=== PATIENT | male | born 1960 | race Caucasian/White ===

== ENCOUNTER 2017-01-17 11:07 | Observation (INO) | payer BC ==
[~2017-01-17] VITALS: Ht 172.7 cm; Wt 98.0 kg
[~2017-01-17 11:07] MED LIST: ASPI-535 PO; ATOR80TA18 PO; CLOP75TA19 PO; DOCU-144 PO; HYDR-906 PO; ONDA4TAB8 PO
[2017-01-17] MEDS ORDERED: ASPIRIN 325 MG TAB PO ONE (12:00)
[2017-01-17] MEDS ORDERED: NITROGLYCERIN 2% 1 GM OINT PKT TD ONE (12:00)
[2017-01-17 12:20] LABS: ADD SCAN DIFF NO
[2017-01-17 12:22] LABS: BASOPHIL # 0.1 10^3/ul (0.0-0.1); BASOPHILS % 0.8 % (0.0-2.0); EOSINOPHILS # 0.4 10^3/ul (0.0-0.5); EOSINOPHILS % 5.9 % (0.0-7.0); HEMATOCRIT 41.2 % (42.0-52.0); HEMOGLOBIN 14.4 g/dl (14.0-18.0); LYMPHOCYTES # 1.9 10^3/ul (0.8-2.9); LYMPHOCYTES % 25.2 % (15.0-51.0); MEAN CORPUSCULAR HEMOGLOBIN 29.6 pg (29.0-33.0); MEAN CORPUSCULAR VOLUME 84.8 fl (82.0-101.0); MEAN PLATELET VOLUME 9.3 fl (7.4-10.4); MONOCYTE # 0.7 10^3/ul (0.3-0.9); MONOCYTES % 8.9 % (0.0-11.0); NEUTROPHIL # 4.4 10^3/ul (1.6-7.5); NEUTROPHILS % 58.9 % (39.0-77.0); PLATELET COUNT 313 10^3/UL (140-415); RED BLOOD COUNT 4.86 10^6/ul (4.70-6.10); WHITE BLOOD COUNT 7.4 10^3/ul (4.8-10.8)
--- NOTE | 2017-01-17 12:30 | RADRPT ---
PROCEDURE: Chest x-ray CLINICAL INDICATION: Chest pain TECHNIQUE: Chest single view COMPARISON: 06/29/2016 FINDINGS: The heart is normal in size. The pulmonary vessels are normal in caliber. The lungs are clear. Th e costophrenic angles are sharp. The visualized bony thorax is unremarkable. IMPRESSION: No acute cardiopulmonary disease. RPTAT: HH .Max Murray MD, Date Time Electronically viewed and signed by .Max Murray MD, on 01/17/2017 12:29 .W/
[2017-01-17 12:36] LABS: ALBUMIN 4.1 g/dl (3.3-4.9); CHLORIDE 102 mmol/L (97-110); POTASSIUM 3.9 mmol/L (3.5-5.1); SODIUM 139 mmol/L (135-144)
[2017-01-17 12:38] LABS: ANION GAP 13 (8-16); ASPARTATE AMINO TRANSFERASE 26 IU/L (15-46); BILIRUBIN,INDIRECT 0.5 mg/dl (0-1.1); BILIRUBIN,TOTAL 0.5 mg/dl (0.2-1.3); CARBON DIOXIDE 28 mmol/L (21-31)
[2017-01-17 12:39] LABS: ALANINE AMINOTRANSFERASE 49 IU/L (13-69); ALBUMIN/GLOBULIN RATIO 1.46; ALKALINE PHOSPHATASE 80 IU/L (42-121); BLOOD UREA NITROGEN 15 mg/dl (7-20); CALCIUM 9.7 mg/dl (8.4-10.2); GLUCOSE 88 mg/dl (70-220); TOTAL PROTEIN 6.9 g/dl (6.1-8.1)
[2017-01-17 12:43] LABS: PROTIME 13.2 Sec (12.2-14.2)
[2017-01-17 12:44] LABS: PARTIAL THROMBOPLASTIN TIME 33.7 Sec (25.0-35.0)
[2017-01-17 12:52] LABS: TROPONIN-I < 0.012 ng/ml (0.00-0.12)
--- NOTE | 2017-01-17 13:44 | ERA ---
ER Documentation Chief Complaint Date/Time DATE: 01/17/17 TIME: 13:42 Chief Complaint chest pain for the past 2 days. no n/v. mild sob. no diaphoresis HPI 56-year-old male presents to the emergency department complaining of chest pain. Patient states for the last 2 days he has had a spontaneous, non-provoked chest discomfort in the center part of his chest. It is pressure-like and nonspecific and radiates to his right upper extremity. It is associated with no nausea or vomiting. He reports shortness of breath with no diaphoresis. He reports no fevers or chills. Patient has had no significant follow-up since stenting of 1 of his coronary arteries. ROS All systems reviewed and are negative except as per history of present illness. Medications Home Meds Reported Medications Clopidogrel Bisulfate (Plavix) 75 Mg Tablet, 75 MG PO DAILY 11/03/12 Aspirin Ec (Aspir 81) 81 Mg Tablet.dr, 81 MG PO DAILY 10/28/12 Atorvastatin (Lipitor) 80 Mg Tablet, 80 MG PO DAILY 10/28/12 Discontinued Scripts Ondansetron Hcl* (Zofran*) 4 Mg Tablet, 4 MG PO Q8H Y for NAUSEA AND/OR VOMITING , #15 TAB Prov:LEELA RATLIFF DO 06/29/16 Docusate Sodium* (Colace*) 100 Mg Capsule, 100 MG PO TID, #30 CAP Prov:LEELA RATLIFF DO 06/29/16 Hydrocodone/Acetaminophen ([place] 5-325 Tablet) 1 Each Tablet, 1 TAB PO Q6H Y for PAIN, #20 TAB Prov:LEELA RATLIFF DO 06/29/16 Allergies Allergies: Coded Allergies: No Known Drug Allergy (Verified Allergy, Mild, 01/17/17) PMhx/Soc History of Surgery: Yes (STENT X3) Anesthesia Reaction: No Hx Neurological Disorder: No Hx Respiratory Disorders: No Hx Cardiac Disorders: Yes (HTN) Hx Psychiatric Problems: No Hx Miscellaneous Medical Probl: No Hx Alcohol Use: No Hx Substance Use: No Hx Tobacco Use: No Smoking Status: Never smoker FmHx Noncontributory for chief complaint Physical Exam Vitals Vital Signs Date Time Temp Pulse Resp B/P Pulse Ox O2 Delivery O2 Flow Rate FiO2 01/17/17 12:02 Nasal Cannula 01/17/17 11:14 98.8 90 21 150/81 98 Physical Exam GENERAL: The patient is well developed and appropriate for usual state of health in no apparent distress HEENT: Pupils equal, round, and reactive to light. EOMI. There is no scleral icterus. NECK: C-spine is soft and supple, there is no meningismus. There is no cervical lymphadenopathy. LUNGS: Clear to auscultation bilaterally. There are no rales, wheezes or rhonchi. HEART: Regular rate and rhythm, no murmurs, clicks, rubs or gallops. ABDOMEN: Soft, non-tender, non-distended. There are bowel sounds in all four quadrants. No rebound or guarding. EXTREMITIES: There is no peripheral cyanosis or edema. No focal swelling or erythema. NEURO: The patient moves all four extremities with 5/5 strength. Cranial nerves II - XII are intact. Normal gait. Alert and oriented SKIN: There is no apparent rash or petechiae. HEME/LYMPHATIC: There is no evidence of excessive bruising or lymphedema. PSYCHIATRIC: The patient does not appear anxious or depressed. Result Diagram: 01/17/17 1205 01/17/17 1205 Results 24 hrs Laboratory Tests Test 01/17/17 12:05 White Blood Count 7.410^3/ul Red Blood Count 4.8610^6/ul Hemoglobin 14.4g/dl Hematocrit 41.2% Mean Corpuscular Volume 84.8fl Mean Corpuscular Hemoglobin 29.6pg Mean Corpuscular Hemoglobin Concent 35.0g/dl Red Cell Distribution Width 12.0% Platelet Count 92940^3/UL Mean Platelet Volume 9.3fl Neutrophils % 58.9% Lymphocytes % 25.2% Monocytes % 8.9% Eosinophils % 5.9% Basophils % 0.8% Nucleated Red Blood Cells % 0.0/100WBC Neutrophils # 4.410^3/ul Lymphocytes # 1.910^3/ul Monocytes # 0.710^3/ul Eosinophils # 0.410^3/ul Basophils # 0.110^3/ul Nucleated Red Blood Cells # 0.010^3/ul Prothrombin Time 13.2Sec Prothrombin Time Ratio 1.0 INR International Normalized Ratio 1.00 Activated Partial Thromboplast Time 33.7Sec Sodium Level 139mmol/L Potassium Level 3.9mmol/L Chloride Level 102mmol/L Carbon Dioxide Level 28mmol/L Anion Gap 13 Blood Urea Nitrogen 15mg/dl Creatinine 0.90mg/dl Glucose Level 88mg/dl Calcium Level 9.7mg/dl Total Bilirubin 0.5mg/dl Direct Bilirubin 0.00mg/dl Indirect Bilirubin 0.5mg/dl Aspartate Amino Transf (AST/SGOT) 26IU/L Alanine Aminotransferase (ALT/SGPT) 49IU/L Alkaline Phosphatase 80IU/L Troponin I < 0.012ng/ml Total Protein 6.9g/dl Albumin 4.1g/dl Globulin 2.80g/dl Albumin/Globulin Ratio 1.46 Current Medications Medications (Trade) Dose Ordered Sig/Cinthia Route PRN Reason Start Time Stop Time Status Last Admin Dose Admin Aspirin (Aspirin) 325 mg ONCE ONCE PO 01/17/17 12:00 01/17/17 12:01 DC 01/17/17 11:55 Nitroglycerin (Nitroglycerin 2% Oint) 1 inch ONCE ONCE TD 01/17/17 12:00 01/17/17 12:01 DC 01/17/17 11:55 Procedures/MDM Patient was taken to a room, seen and evaluated. Comfort measures were initiated. Diagnostic tests were ordered and reviewed. 3 LEAD RHYTHM STRIP: Normal sinus rhythm without ectopy EK lead EKG reviewed by myself: Normal Sinus Rhythm Normal [place] and intervals Nonspecific ST and T-wave changes mostly appreciated about the inferior leads Impression: Abnormal EKG with possible ischemic changes inferiorly Repeat twelve-lead EKG interpreted by myself: Rate/rhythm: Normal sinus rhythm no ectopy [place]/intervals: Normal Ischemia: No ST elevation, ST depression, T wave inversion Impression: Nonischemic EKG RADIOLOGY: reviewed with the radiologist CONSULTATION: hospitalist was notified for admission REEVALUATION: Patient remained comfortable in the emergency department and hemodynamically stable MEDICAL DECISION MAKING: Patient presents with chest pain of uncertain etiology. Differential diagnosis considered includes acute myocardial infarction , pulmonary embolism, as well as vascular and pulmonary concerns. I have reviewed the patients clinical risk factors, EKG, lab studies and imaging. At this time, patient's initial EKG is nonspecific but normalized. Patient's troponin is negative. Given his underlying history of heart disease, he is obviously at risk and will require admission for further risk stratification Departure Diagnosis: Primary Impression: Chest pain Condition: MALCOLM Boyd Jan 17, 2017 13:44
[2017-01-17 14:05] VITALS: TEMP 98.6
[2017-01-17] MEDS ORDERED: ACETAMINOPHEN 500 MG TAB PO STA (14:07)
[2017-01-17] MEDS ORDERED: MAGNESIUM HYDROXIDE 30ML CUP PO PRN (15:30)
[2017-01-17] MEDS ORDERED: morphine 2 MG INJ IV PRN (15:30)
[2017-01-17] MEDS ORDERED: NACL 0.9% 3 ML SYG IV SCH (15:30)
[2017-01-17] MEDS ORDERED: ONDANSETRON 4 MG INJ IV PRN (15:30)
[2017-01-17] MEDS ORDERED: NA PHOSPHATE/BIPHOS 133 ML ENEMA PR PRN (15:30)
[2017-01-17] MEDS ORDERED: ACETAMINOPHEN 325 MG TAB PO PRN (15:30)
[2017-01-17] MEDS ORDERED: hydrALAzine 20 MG INJ IV PRN (15:30)
[2017-01-17] MEDS ORDERED: ALBUTEROL/IPRATROPIUM (NEB) 3 ML AMP HHN PRN (15:30)
[2017-01-17] MEDS ORDERED: NITROGLYCERIN (SL) 0.4 MG TAB SL PRN (15:30)
[2017-01-17] MEDS ORDERED: LORAZEPAM 2 MG INJ IV PRN (15:30)
[2017-01-17] MEDS ORDERED: DOCUSATE SODIUM 100 MG CAP PO PRN (15:30)
[2017-01-17 15:32] VITALS: PULSE 88
[2017-01-17 15:38] VITALS: Ht 172.7 cm; Wt 98.0 kg
[2017-01-17 16:20] VITALS: PULSE 83
[2017-01-17 17:25] LABS: CK-MB 0.68 ng/ml (0.0-2.4)
[2017-01-17] MEDS: HYDROCODONE/APAP (5/325) TAB PO PRN (18:25)
[2017-01-17 19:09] LABS: CREATINE KINASE 77 IU/L (23-200)
[2017-01-17 19:32] LABS: CK-MB 0.54 ng/ml (0.0-2.4); TROPONIN-I < 0.012 ng/ml (0.00-0.12)
[2017-01-17 20:03] VITALS: PULSE 75
[2017-01-17 20:07] VITALS: BP 113/69; RESP 19
[2017-01-17] MEDS: FAMOTIDINE 20 MG TAB PO SCH (21:37)
[2017-01-17] MEDS: HEPARIN 5,000 UNIT/0.5 ML VIAL SC SCH (21:41)
[2017-01-17 23:40] VITALS: BP 105/57; RESP 18
[2017-01-17 23:57] LABS: CREATINE KINASE 67 IU/L (23-200)
[2017-01-18] VITALS (8 sets, daily range): BP systolic 111–121; BP diastolic 70–78; PULSE 60–103; RESP 19–20
[2017-01-18 00:11] LABS: CK-MB 0.39 ng/ml (0.0-2.4); TROPONIN-I < 0.012 ng/ml (0.00-0.12)
--- NOTE | 2017-01-18 07:34 | HP ---
DATE OF ADMISSION: 01/17/2017 CHIEF COMPLAINT: Chest pain and tightness. HISTORY OF PRESENT ILLNESS: A 56-year-old male with past medical history of coronary artery disease status post PCI placement x3, hypertension, high cholesterol who presents earlier today with compla ints of chest pain that has been going on for the last 2 days. He said it has been radiating to the right arm. It has been described more as a chest tightness. He also noticed over the last few wee ks his blood pressure has been higher than normal. Normally his systolic blood pressure is apparent ly in the 120s to 130s, but in the last few weeks he has noticed it has been in the 140s to 150s. R egarding his chest discomfort, he does describe it as pressure-like in sensation, again radiating to the right upper extremity. No nausea, vomiting, no upper or lower GI bleeding, no shortness of fermín ath, no headaches or dizziness. No sweating. No fevers or chills. No diarrhea, no constipation. He states he has not seen managed care director presently. His last follow up with any managed care director has been at least over 1 year ago. PAST MEDICAL HISTORY: As stated above. ALLERGIES: NO KNOWN DRUG ALLERGIES. MEDICATIONS AT HOME: 1. Plavix 75 mg daily. 2. Lipitor 80 mg daily. 3. Aspirin 81 mg daily. PAST SURGICAL HISTORY: He had cholecystectomy 2 months ago. SOCIAL HISTORY: Negative for smoking, drinking, or IV drug abuse. FAMILY HISTORY: His brother had coronary artery disease; another sibling had a stroke and also cere bral hemorrhage. PHYSICAL EXAMINATION: VITAL SIGNS: T-max 98.8, pulse 90, respirations 21, blood pressure 150/81, saturating at 98% on stepan m air. GENERAL: The patient is lying in bed, answering questions appropriately. No acute distress. HEENT: Pupils are equal, round, react to light. Extraocular muscles intact. NECK: Supple, no thyromegaly. LUNGS: Clear to auscultation bilaterally. CARDIOVASCULAR: S1, S2 heard. No rubs or gallops. ABDOMEN: Soft, nontender, nondistended. Normal bowel sounds. No rebound or guarding. MUSCULOSKELETAL: No lower extremity edema bilaterally. NEUROLOGIC: No focal deficits. LABORATORIES: CBC is normal. The comprehensive metabolic panel is normal. Troponin is negative x1 . Coags are normal. IMAGING: Chest x-ray shows no acute cardiopulmonary disease. EKG showed normal sinus rhythm. Ther e are questionable T-wave changes in the inferior leads and possible ST depression in these areas as well. ASSESSMENT AND PLAN: This is a 56-year-old male with past medical history of hypertension, high cho lesterol, coronary artery disease status post stent x3 in the past who presents with chest pain for the last 2 days. 1. Chest pain: Given his cardiac history, we will admit him to telemetry floor, rule him out for a cute coronary syndrome. Will check troponins every 6 hours x2 more. Will put him on high dose asp irin, morphine, oxygen, and nitroglycerin. We will check a 2D echocardiogram Check a TSH, A1c and l ipid panel. Continue Lipitor. We will get a cardiology consult. The patient may benefit from a ca rdiac stress test as well. Will discuss with cardiology team. 2. High cholesterol: We will check a lipid panel and continue Lipitor. 3. Hypertension: Blood pressure is presently stable. Continue current medications and hydralazine p.r.n. for systolic greater than 160. 4. GI prophylaxis: Will put him on H2 dulce. 5. Deep venous thrombosis prophylaxis: Heparin subQ. Dictated By: SMITA PONCE/LIZZETH Conf#: [id number] DID#: [id number]
[2017-01-18] MEDS: FAMOTIDINE 20 MG TAB PO SCH (08:07)
[2017-01-18] MEDS: HEPARIN 5,000 UNIT/0.5 ML VIAL SC SCH (08:22)
[2017-01-18 08:30] LABS: CHOL/HDL RATIO 3.8 RATIO
--- NOTE | 2017-01-18 08:43 | CONS ---
Date/Time of Note Date/Time of Note DATE: 01/18/17 TIME: 08:40 Assessment/Plan Assessment/Plan Chief Complaint/Hosp Course Chest pain- atypical, has h/o of cad. has r/o for acs. needs stress test to risk stratify. echo reviewed, no wma. - plan for exercise stress echo - d/c nitro paste. - cont aspirin - cont statin - on plavix - ok to cont for now s/p deirdre- stable per primary team h/o htn- not on meds as outpt, bp higher at presentation, stable currently - cont to follow, consider bb therapy Problems: Consultation Date/Type/Reason Admit Date/Time Jan 17, 2017 at 13:41 Date of Consultation: Jan 18, 2017 Type of Consultation: Cardiology Reason for Consultation Chest pain Referring Provider: SMITA BURNETT Hx of Present Illness Mr. Mccray is a 56 y.o. man with h/o of CAD s/p PCI to RCA and [place]x [place] [address] Arzate. Pt has not followed in our clinic since 2012. Patient reports 3-4 days of constant chest pain/pressure with radiation to neck and R arm. Pt denies sob, n/v, diaphoresis associated. Has felt fatigue with activity. Pain occurs at rest, no change with activity. He denies any similar pain in past, he has had recent cholecystectomy 3 mo ago. Reports having more huber in 2013 prior to PCI. Pt denies pnd, orthopnea, edema. no palpitations, dizziness, syncope. EKG which I reviewed, shows nsr, no ischemic st/t wave abnl. trop neg x 3. pt states he still has the chest pressure, mild in intensity looks comfortable. states pain is made worse with coffee. Constitutional: no complaints Eyes: no complaints ENT: no complaints Respiratory: no complaints Cardiovascular: chest pain Gastrointestinal: other (s/p deirdre), pain Genitourinary: no complaints Musculoskeletal: no complaints Skin: no complaints Neurologic: no complaints Psychological: no complaints Immunologic: no complaints Past Medical History Chest Pain 786.50 Coronary Artery Disease 414.00 cath oct:Medtronic rEsolute 2.5X26 stent dominant RCA,Promus 2.5X20 stent Circ I OMB trunk,2.5X16 Promus stent in a large branch of I OMB.40% lesion in small MID LAD Dizziness 780.4 Hyperlipidemia 272.4 Hypertension 401.9 Non-Q-wave Myocardial Infarction 410.70 Adm with a very small NSTEMI probably due to a small branch of I OMB occlusion on october and disch on oct Palpitations 785.1 Shortness Of Breath 786.05 Unstable Angina 411.1 History of Diabetes Mellitus 250.00 Family History Significant Family History: other ( Fraternal history of Acute Myocardial Infarction V17.3) Social History Alcohol Use: none Smoking Status: Never smoker Drug Use: none Exam/Review of Systems Vital Signs Vitals Vital Signs Date Time Temp Pulse Resp B/P Pulse Ox O2 Delivery O2 Flow Rate FiO2 01/18/17 08:24 71 01/18/17 07:43 98.5 19 111/70 95 01/17/17 14:05 Room Air Intake and Output 01/17/17 01/17/17 01/18/17 15:00 23:00 07:00 Intake Total 100 ml 720 ml Balance 100 ml 720 ml Exam Constitutional: alert, obese, oriented Psych: no complaints Head: atraumatic, normocephalic Eyes: nl conjunctiva ENMT: nl external ears & nose, nl lips & teeth, nl nasal mucosa & septum Neck: non-tender, supple, No jvd Respiratory: clear to auscultation, normal air movement Cardiovascular: nl pulses, regular rate and rhythm, No S3, No S4, No diastolic murmur, No edema, No systolic murmur Gastrointestinal: non-tender, soft Musculoskeletal: nl extremities to inspection, nl gait and stance Extremities: normal pulses Neurological: 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 EXAMINER II-XII intact, nl mental status, nl speech, nl strength Skin: nl turgor Results Result Diagram: 01/17/17 1205 01/17/17 1205 Results 24 hrs Laboratory Tests Test 01/17/17 12:05 01/17/17 18:15 01/17/17 23:40 White Blood Count 7.4 Red Blood Count 4.86 Hemoglobin 14.4 Hematocrit 41.2 L Mean Corpuscular Volume 84.8 Mean Corpuscular Hemoglobin 29.6 Mean Corpuscular Hemoglobin Concent 35.0 Red Cell Distribution Width 12.0 Platelet Count 313 Mean Platelet Volume 9.3 # Neutrophils % 58.9 Lymphocytes % 25.2 Monocytes % 8.9 Eosinophils % 5.9 Basophils % 0.8 Nucleated Red Blood Cells % 0.0 Neutrophils # 4.4 Lymphocytes # 1.9 Monocytes # 0.7 Eosinophils # 0.4 Basophils # 0.1 Nucleated Red Blood Cells # 0.0 Prothrombin Time 13.2 Prothrombin Time Ratio 1.0 INR International Normalized Ratio 1.00 Activated Partial Thromboplast Time 33.7 Sodium Level 139 Potassium Level 3.9 Chloride Level 102 Carbon Dioxide Level 28 Anion Gap 13 Blood Urea Nitrogen 15 Creatinine 0.90 Glucose Level 88 Calcium Level 9.7 Total Bilirubin 0.5 Direct Bilirubin 0.00 Indirect Bilirubin 0.5 Aspartate Amino Transf (AST/SGOT) 26 Alanine Aminotransferase (ALT/SGPT) 49 Alkaline Phosphatase 80 Creatine Kinase 95 77 67 Creatinine Kinase MB (Mass) 0.68 0.54 0.39 Troponin I < 0.012 < 0.012 < 0.012 Total Protein 6.9 Albumin 4.1 Globulin 2.80 Albumin/Globulin Ratio 1.46 Free Thyroxine 1.11 Creatine Kinase Index 0.7 0.6 Medications Medications Current Medications Ondansetron HCl (Zofran Inj) 4 mg Q6H PRN IV NAUSEA AND/OR VOMITING; Start at 15:30 Acetaminophen (Tylenol Tab) 650 mg Q6H PRN PO PAIN LEVEL 1-3 OR FEVER; Start at 15:30 Acetaminophen/ Hydrocodone Bitart ([place] (5/325)) 1 tab Q6H PRN PO MODERATE PAIN LEVEL 4-6 Last administered on 01/17/17 18:25; Admin Dose 1 TAB; Start at 15:30 Morphine Sulfate (morphine) 2 mg Q4H PRN IV SEVERE PAIN LEVEL 7-10; Start 01/17 at 15:30 Docusate Sodium (Colace) 100 mg Q12H PRN PO CONSTIPATION; Start 01/17/17 at 15: 30 Magnesium Hydroxide (Milk Of Mag) 30 ml DAILY PRN PO CONSTIPATION; Start at 15:30 Sodium Biphosphate/ Sodium Phosphate (Fleet Enema) 133 ml DAILY PRN CO CONSTIPATION; Start 01/17/17 at 15:30 Famotidine (Pepcid) 20 mg Q12 PO Last administered on 01/18/17 08:07; Admin Dose 20 MG; Start 01/17/17 at 21:00 Heparin Sodium (Porcine) (Heparin (5000 Units/0.5 ml)) 5,000 unit Q12 SC Last administered on 01/18/17 08:22; Admin Dose 5,000 UNIT; Start 01/17/17 at 21:00 Lorazepam (Ativan) 0.5 mg Q6H PRN IV ANXIETY; Start 01/17/17 at 15:30 Hydralazine HCl (Apresoline) 10 mg Q6H PRN IV ELEVATED BLOOD PRESSURE; Start at 15:30 Nitroglycerin (Nitroglycerin (Sl Tab) 0.4 Mg) 1 tab Q5M PRN SL ANGINA; Start at 15:30 Aspirin (Ecotrin) 325 mg DAILY PO Last administered on 01/18/17 08:07; Admin Dose 325 MG; Start 01/18/17 at 09:00 Atorvastatin Calcium (Lipitor) 80 mg DAILY PO Last administered on 01/18/17 08 :07; Admin Dose 80 MG; Start 01/18/17 at 09:00 Clopidogrel Bisulfate (plaVIX) 75 mg DAILY PO Last administered on 01/18/17 08 :07; Admin Dose 75 MG; Start 01/18/17 at 09:00 Procedures Procedures cxr images reviewed, no acute abnl tele reviewed no events, nsr KOREY THORNE Jan 18, 2017 08:43
[2017-01-18 08:56] LABS: ADD SCAN DIFF NO
[2017-01-18 08:59] LABS: THYROID STIMULATING HORMONE 2.01 MIU/L (0.465-4.680)
[2017-01-18 09:00] LABS: BASOPHIL # 0.1 10^3/ul (0.0-0.1); BASOPHILS % 0.8 % (0.0-2.0); EOSINOPHILS # 0.6 10^3/ul (0.0-0.5); EOSINOPHILS % 6.9 % (0.0-7.0); HEMOGLOBIN 13.8 g/dl (14.0-18.0); LYMPHOCYTES # 1.8 10^3/ul (0.8-2.9); LYMPHOCYTES % 21.2 % (15.0-51.0); MEAN CORPUSCULAR HGB CONC 33.7 g/dl (32.0-37.0); MEAN CORPUSCULAR VOLUME 86.1 fl (82.0-101.0); MONOCYTE # 0.7 10^3/ul (0.3-0.9); MONOCYTES % 8.6 % (0.0-11.0); NEUTROPHIL # 5.3 10^3/ul (1.6-7.5); NEUTROPHILS % 62.1 % (39.0-77.0); PLATELET COUNT 299 10^3/UL (140-415); RED BLOOD COUNT 4.76 10^6/ul (4.70-6.10); RED CELL DISTRIBUTION WIDTH 12.2 % (11.5-14.5); WHITE BLOOD COUNT 8.6 10^3/ul (4.8-10.8)
[2017-01-18] MEDS ORDERED: CLOPIDOGREL 75 MG TAB PO SCH (09:00)
[2017-01-18] MEDS ORDERED: ATORVASTATIN 80 MG TAB PO SCH (09:00)
[2017-01-18] MEDS ORDERED: ASPIRIN (EC) 325 MG TAB PO SCH (09:00)
[2017-01-18 09:03] LABS: POTASSIUM 4.2 mmol/L (3.5-5.1)
[2017-01-18 09:05] LABS: CREATININE 0.98 mg/dl (0.61-1.24)
[2017-01-18 09:06] LABS: CALCIUM 9.5 mg/dl (8.4-10.2); MAGNESIUM 2.1 mg/dl (1.7-2.5); PHOSPHORUS 3.7 mg/dl (2.5-4.9)
[2017-01-18] MEDS: HYDROCODONE/APAP (5/325) TAB PO PRN (10:06)
--- NOTE | 2017-01-18 14:22 | RADRPT ---
Stress Test Report Patient Name: RICKY TAYLOR Gender: Male Date: 1960 Study Date: 18-Jan-2017 Search Marketing Analyst: Kiah Salas [facility] Location: EKG Ref. Physician: TUAN THORNE Quality: Good Procedures: Treadmill stress echocardiogram. Indications: Chest Pain. Findings Stress Data: Protocol - Ruddy Protocol. Resting Echo Findings: Normal left ventricular size and systolic function with normal wall thickness at rest. Resting ECG: Normal EKG. Exercise Stress LV Function: Normal hyperdynamic contractile response with no inducible ischemia in areas visualized. The stress parasternal short axis view was not obtained. Exercise ECG: No stress induced ischemic ST segment changes. Reason for Termination: Fatigue. Chest Pain. Functional Capacity: Average exercise functional capacity. Blood Pressure Response: Normal blood pressure response. Arrhythmia: No exercise induced arrhythmias. Conclusions Normal hemodynamic response to exercise. Stress echocardiogram negative for inducible ischemia at greater than 100 % MPHR. Exercise induced chest pain at peak stress, resolved in recovery. Average functional capacity. Electronically Signed By: Tuan Thorne 18-Jan-2017 14:21:42 -0700 Patient Name: RICKY TAYLOR Study Date: 18-Jan-2017 [id number]
--- NOTE | 2017-01-18 14:24 | RADRPT ---
Echocardiogram Report Patient Name: RICKY TAYLOR Gender: Male Date: 1960 Study Date: 18-Jan-2017 Waiver Analyst: Radha Lyon [facility] Location: 522 Ref. Physician: SMITA BURNETT Quality: Good Procedures: Transthoracic echocardiogram with complete 2D, M-Mode, and doppler examination. Indications: Chest Pain. Coronary Artery Disease. 2D/M Mode Doppler Measurement Value Normal Ranges Measurement Value Normal Ranges LVIDd 2D 4.5 3.5 - 5.6 cm AV Peak Berry 1.1 m/sec LVIDs 2D 3.3 2.1 - 4.1 cm AV Peak PG 4.7 mmHg LVPWd 2D 1.0 0.6 - 1.1 cm LVOT Peak Berry 1.0 m/sec IVSd 2D 0.7 0.6 - 1.1 cm LVOT Peak PG 4.2 mmHg AoR Diam 2D 2.5 2.0 - 3.7 cm MV E Peak Berry 0.5 m/sec EDV 2D 93.3 cm3 MV A Peak Berry 0.5 m/sec ESV 2D 34.8 cm3 MV E/A 0.9 LA Dimen 2D 3.4 2.3 - 4.0 cm MV Decel Time 305 msec MV Decel Ir[place] 2 MV E/A 0.9 Findings Left Ventricle: Normal left ventricular systolic function. Normal left ventricular cavity size. Normal left ventricular wall thickness. Ejection fraction is visually estimated at 65 %. Tissue Doppler/Mitral Doppler indices are within normal limits. Right Ventricle: Normal right ventricular size. Normal right ventricular systolic function. Left Atrium: The left atrium is normal in size. Right Atrium: The right atrium is normal in size. Mitral Valve: Normal appearance and function of the mitral valve with trace physiologic regurgitation. Aortic Valve: Normal appearance of the aortic valve. No significant aortic stenosis or insufficiency. Tricuspid Valve: Normal appearance and function of the tricuspid valve with trace physiologic regurgitation. Pulmonic Valve: Normal pulmonic valve appearance. Pericardium: Normal pericardium with no significant pericardial effusion. Aorta: Normal aortic root. IVC: Normal size and normal respiratory collapse consistent with normal right atrial pressure. Conclusions Normal left ventricular systolic function. Normal left ventricular cavity size. Normal left ventricular wall thickness. Ejection fraction is visually estimated at 65 %. Tissue Doppler/Mitral Doppler indices are within normal limits. Normal right ventricular size. Normal right ventricular systolic function. The left atrium is normal in size. Normal appearance of the aortic valve. No significant aortic stenosis or insufficiency. Normal appearance and function of the tricuspid valve with trace physiologic regurgitation. Normal pericardium with no significant pericardial effusion. Normal size and normal respiratory collapse consistent with normal right atrial pressure. No Vegetation, masses, or thrombi seen. Electronically Signed By: Tuan Greene 18-Jan-2017 14:23:06 -0700 Patient Name: RICKY TAYLOR Study Date: 18-Jan-2017 [id number]
--- NOTE | 2017-01-18 14:36 | PDOCDIS ---
Discharge Instructions CONDITION Patient Condition: Good HOME CARE INSTRUCTIONS: Special Diet: Cardiac ACTIVITY: Activity Restrictions: No Restrictions FOLLOW UP/APPOINTMENTS Appointments follow up with cardiology as out-pt CLAIRE HUANG MD Jan 18, 2017 14:36
[2017-01-18] MEDS ORDERED: NIT4 SL (14:38)
[2017-01-18] MEDS ORDERED: FAMO20TA18 PO (14:38)
[2017-01-18] MEDS ORDERED: METO-448 PO (14:38)
--- NOTE | 2017-01-18 16:07 | DS ---
DATE OF ADMISSION: 01/17/2017 DATE OF DISCHARGE: 01/18/2017 WEB SITE ADMIN: Dr. Greene. PROCEDURES: Stress echo which showed normal hemodynamic response to exercise. Stress echocardiogra m negative for inducible ischemia at greater than 100% MPHR, exercise-induced chest pain at peak str ess, resolved in recovery, average function, normal capacity. DIAGNOSES: 1. Atypical chest pain with history of coronary artery disease. The patient is status post negativ e troponin x3, negative stress echo. Continue aspirin, Plavix, statin, and nitroglycerin. 2. Dyslipidemia. Continue statin. 3. Essential hypertension. Started on metoprolol. 4. Recent history of cholecystectomy, stable. Continue pain medication as needed. MEDICATIONS: 1. Aspirin. 2. Lipitor. 3. Plavix. 4. Pepcid. 5. Metoprolol 6. Nitroglycerin. ALLERGIES: NO KNOWN DRUG ALLERGIES. DISPOSITION: Home. DIET: Cardiac. ACTIVITY: As tolerated. HOSPITAL COURSE: This is a 56-year-old gentleman with past medical history of coronary artery disea se status post PCI placement x3, hypertension, dyslipidemia, recent history of cholecystectomy who p resented to [facility] on 01/17/2017 secondary to having chest discomfort x2 days. The pain was in the midepigastric chest area radiating to his right arm. It has been described as chest tightness. He has also noticed that his blood pressure has been higher than normally. Betzaida lly his blood pressure is 120s to 130s, although he has been running 140s to 150s. Upon evaluation in the ER, his EKG showed normal sinus rhythm. There is questionable T-wave change in inferior lead with possible ST depression. Troponin was found to be negative x3. Cardiology was consulted. The patient's lipid panel was found to be normal with triglyceride 141, total cholesterol 149, HDL 82, LDL 39, TSH 2.01. Troponin negative x3. The patient was set up for stress echo which was found to be negative for induced ischemia at greater than 100% MPHR. Normal hemodynamic response to exercise . 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 Dictated By: CLAIRE HUANG MD PN/NTS Conf#: [id number] [facility]#: [id number]
== END 2017-01-18 15:54 | disposition home or self-care (01) ==
LOC: E/R 11:07 → TEL 13:41
PROVIDERS: ADMIT Family Medicine; ATTEND Family Medicine
DX: R07.89 Other chest pain (principal); I10 Essential (primary) hypertension; I25.10 Atherosclerotic heart disease of native coronary artery without angina pectoris; E78.5 Hyperlipidemia, unspecified; I25.2 Old myocardial infarction; Z79.02 Long term (current) use of antithrombotics/antiplatelets; Z79.82 Long term (current) use of aspirin; Z79.899 Other long term (current) drug therapy; Z98.61 Coronary angioplasty status
CPT/HCPCS: 36415; 71010; 80048; 80053; 80061; 82550; 82553; 83036; 83735; 84100; 84439; 84443; 84484; 85025; 85610; 85730; 93005; 93306; 93350; 96372; 99285; G0378; J1644

== ENCOUNTER 2018-08-24 08:10 | Emergency (ER) | END 2018-08-24 11:39 | disposition home or self-care (01) ==

== ENCOUNTER 2018-10-12 18:37 | Inpatient (IN) | END 2018-10-16 14:52 | disposition home or self-care (01) | DRG 247 ==